=== PATIENT | male | born 2000 | race Hispanic/Latino ===

== ENCOUNTER 2021-06-23 23:21 | Emergency (ER) | payer OTHER ==
[~2021-06-23] VITALS: Ht 172.7 cm; Wt 88.0 kg
[2021-06-23] MEDS ORDERED: BACTROBAN TOP (23:42)
[2021-06-24 00:08] VITALS: BP 154/66
== END 2021-06-24 00:04 | disposition home or self-care (01) | DRG 605 ==
LOC: ED 23:21
DX: S60.932A Unspecified superficial injury of left thumb, initial encounter (principal); X58.XXXA Exposure to other specified factors, initial encounter; Z77.21 Contact with and (suspected) exposure to potentially hazardous body fluids; Y92.149 Unspecified place in prison as the place of occurrence of the external cause; Y99.0 Civilian activity done for income or pay